=== PATIENT | male | born 1985 | race Caucasian/White ===

== ENCOUNTER 2021-05-23 14:30 | Emergency (ER) | payer SELFPAY ==
[2021-05-23 16:47] LABS: Absolute Lymphocytes (CBC) 2.9 K/uL (0.7-4.9); Hematocrit 40.3 % (39.6-49.0); Lymphocytes % 29.6 % (15.3-44.8); MPV 7.9 fL (7.6-11.3)
[2021-05-23 16:53] LABS: Protime INR 0.97
[2021-05-23 17:03] LABS: ALT/SGPT 20 U/L (12-78); AST/SGOT 12 U/L (15-37); Albumin 3.5 g/dL (3.4-5.0); Alkaline Phosphatase 65 U/L (45-117); BUN Blood Urea Nitrogen 16 mg/dL (7-18); Bicarbonate 29 mmol/L (21-32); Bilirubin Direct < 0.1 mg/dL (0-0.2); Bilirubin Total 0.2 mg/dL (0.2-1.0); Glucose Level 88 mg/dL (74-106); Magnesium 2.2 mg/dL (1.8-2.4); Potassium 3.9 mmol/L (3.5-5.1); Sodium Level 140 mmol/L (136-145)
[2021-05-23 17:05] LABS: NT PRO-BNP 43 pg/mL (<125); Troponin (Emerg Dept Use Only) < 0.02 ng/mL (0.0-0.045)
--- NOTE | 2021-05-23 17:08 | RAD REPORT ---
EXAM DESCRIPTION: Beena Single View05/23/2021 4:47 pm CLINICAL HISTORY: cough COMPARISON: none FINDINGS: The lungs appear clear of acute infiltrate. The heart is normal size IMPRESSION: No acute abnormalities displayed
--- NOTE | 2021-05-23 17:21 | RAD REPORT ---
EXAM DESCRIPTION: CT - Head Brain Wo Cont - 05/23/2021 4:56 pm CLINICAL HISTORY: Dizziness COMPARISON: None. TECHNIQUE: Computed axial tomography of the head was obtained. IV contrast was not requested. All CT scans are performed using dose optimization technique as appropriate and may include automated exposure control or mA/KV adjustment according to patient size. FINDINGS: An intracranial bleed is not seen . The ventricles are normal in caliber. No extra-axial fluid collection is noted. Fluid within the sinuses/ mastoids is not seen. Mild chronic sinusitis IMPRESSION: No acute intracranial abnormality is seen. If patient's symptoms persist MRI of the bra in would be recommended.
--- NOTE | 2021-05-23 17:53 | ER ---
Nurse's Notes [facility] Name: Kenneth Cabrera Age: 36 yrs Sex: Male : 1985 Arrival Date: 05/23/2021 Time: 14:33 Bed 26 Private MD: Diagnosis: Nontraumatic hematoma of soft tissue Presentation: 05/23 15:01 Chief complaint: Patient states: Multiple bruises all over the body, generalized ww fatigue, nausea and vomiting with recent weight loss, dizziness and shortness of breath. Coronavirus screen: Vaccine status: Patient reports receiving the 2nd dose of the covid vaccine. Client denies travel out of the [place] in the last 14 days. Ebola Screen: Patient negative for fever greater than or equal to 101.5 degrees Fahrenheit, and additional compatible Ebola Virus Disease symptoms Patient denies exposure to infectious person. Initial Sepsis Screen: Does the patient meet any 2 criteria? No. Patient's initial sepsis screen is negative. Does the patient have a suspected source of infection? No. Patient's initial sepsis screen is negative. Risk Assessment: Do you want to hurt yourself or someone else? Patient reports no desire to harm self or others. Onset of symptoms is unknown. 15:01 Method Of Arrival: Ambulatory ww 15:01 Acuity: SANTO 3 ww Triage Assessment: 15:03 General: Appears in no apparent distress. Behavior is calm, cooperative, appropriate ww for age. Pain: Denies pain. EENT: No deficits noted. No signs and/or symptoms were reported regarding the EENT system. Neuro: No deficits noted. Level of Consciousness is awake, alert, obeys commands, Oriented to person, place, time, situation. Cardiovascular: No deficits noted. Reports chest pain, shortness of breath. Respiratory: Reports shortness of breath Airway is patent Respiratory effort is even, unlabored, Respiratory pattern is regular, symmetrical. GI: No deficits noted. No signs and/or symptoms were reported involving the gastrointestinal system. : No deficits noted. No signs and/or symptoms were reported regarding the genitourinary system. Derm: Skin is intact, Skin is pink, warm \\T\\ dry. Bruising that is on abdomen, right leg and left leg. Historical: - Allergies: 15:03 No Known Allergies; ww - Home Meds: 15:03 Lisinopril Oral [Active]; Hydrochlorothiazide Oral [Active]; ww - PMHx: 15:03 Atrial fibrillation; Hypertensive disorder; ww - PSHx: 15:03 right radial; hardware in bilateral legs; ww - Immunization history:: Client reports receiving the 2nd dose of the Covid vaccine. - Social history:: Smoking status: Patient reports the use of cigarette tobacco products, smokes one-half pack cigarettes per day. Screenin:07 Abuse screen: Denies threats or abuse. Denies injuries from another. Nutritional ww screening: No deficits noted. Tuberculosis screening: No symptoms or risk factors identified. Fall Risk None identified. Assessment: 17:15 General: Appears in no apparent distress. comfortable, Behavior is calm, cooperative. eo2 Neuro: Level of Consciousness is awake, alert, obeys commands, Oriented to person, place, time, situation, Reports dizziness, since yesterday headache. Cardiovascular: Reports chest pain, shortness of breath, Capillary refill < 3 seconds Rhythm is sinus rhythm. Respiratory: Reports shortness of breath Airway is patent Respiratory effort is even, unlabored, relaxed, Respiratory pattern is regular, symmetrical, Breath sounds are clear bilaterally. GI: Abdomen is non-distended, Bowel sounds present X 4 quads. Abdomen is tender to palpation in RLQ abd Reports nausea, vomiting. : No deficits noted. No signs and/or symptoms were reported regarding the genitourinary system. Derm: Bruising that is chest, b/l thighs/ b/LE noted 3 days ago per pt. Musculoskeletal: Reports pain in right wrist "for months", worse in the past week per pt. Vital Signs: 15:01 BP 145 / 91; Pulse 79; Resp 18; Temp 98.1; Pulse Ox 100% on R/A; Weight 90.72 kg; ww Height 5 ft. 10 in. (177.80 cm); Pain 0/10; 17:00 BP 116 / 65; Pulse 58; Resp 17; Pulse Ox 99% ; Pain 9/10; eo2 15:01 Body Mass Index 28.70 (90.72 kg, 177.80 cm) ww Vitals: 17:23 Cardiac Rhythm Assessment Sinus rhythm. eo2 ED Course: 14:33 Patient arrived in ED. as 15:03 Triage completed. ww 15:03 Arm band placed on left wrist. ww 15:40 Katherine Rosario, RN is Primary Nurse. eo2 15:51 Marcus Peña NP is PHCP. pm1 15:51 Herrera Juárez MD is Attending Physician. pm1 16:47 XRAY Chest (1 view) In Process Unspecified. EDMS 16:55 CT Head Brain wo Cont In Process Unspecified. EDMS 16:55 Inserted saline lock: 20 gauge in left antecubital area, using aseptic technique. eo2 17:23 Patient has correct armband on for positive identification. pvc monitor on. Pulse eo2 ox on. NIBP on. Door closed. Noise minimized. Warm blanket given. 17:23 No provider procedures requiring assistance completed. eo2 18:23 IV discontinued, intact, bleeding controlled, No redness/swelling at site. Pressure ss dressing applied. Administered Medications: No medications were administered Outcome: 17:53 Discharge ordered by . pm1 18:23 Discharged to home ambulatory. ss 18:23 Condition: good 18:23 Discharge instructions given to patient, Instructed on discharge instructions, follow up and referral plans. Demonstrated understanding of instructions, follow-up care. 18:23 Patient left the ED. ss Signatures: Dispatcher [employer] ALYCA Scarlet Mendoza Shelby, RN RN Marcus Peña NP OBIEE REPORT DEVELOPER pm1 Mary Beth Gibson RN RN ww Katherine Rosario RN RN eo2
--- NOTE | 2021-05-23 17:53 | EDPHYS ---
Physician Documentation [facility] Name: Kenneth Cabrera Age: 36 yrs Sex: Male : 1985 Arrival Date: 05/23/2021 Time: 14:33 Bed 26 Private MD: ED Physician Herrera Juárez HPI: 05/23 16:14 This 36 yrs old Male presents to ER via Ambulatory with complaints of Dizziness, pm1 Bruising. 16:14 Bruising to bilateral thighs that he noticed about 3-4 days ago. Non-painful. No pm1 swelling. Severity of symptoms: in the emergency department the symptoms have improved. The patient has not experienced similar symptoms in the past. The patient has been recently seen by a physician: with different complaint(s), Was seen at [facility] ER about 10 days ago for atrial fibrillation. Patient was given anticoagulant at that time. He is not currently taking any anticoagulants. Patient reports resolution of atrial fibrillation on the day he was seen in the ER 10 days ago. Historical: - Allergies: 15:03 No Known Allergies; ww - Home Meds: 15:03 Lisinopril Oral [Active]; Hydrochlorothiazide Oral [Active]; ww - PMHx: 15:03 Atrial fibrillation; Hypertensive disorder; ww - PSHx: 15:03 right radial; hardware in bilateral legs; ww - Immunization history:: Client reports receiving the 2nd dose of the Covid vaccine. - Social history:: Smoking status: Patient reports the use of cigarette tobacco products, smokes one-half pack cigarettes per day. ROS: 16:14 Constitutional: Negative for fever, chills, and weight loss, Eyes: Negative for injury, pm1 pain, redness, and discharge, Cardiovascular: Negative for chest pain, palpitations, and edema, Respiratory: Negative for shortness of breath, cough, wheezing, and pleuritic chest pain, Abdomen/GI: Negative for abdominal pain, nausea, vomiting, diarrhea, and constipation. 16:14 Back: Negative for injury and pain, MS/Extremity: Negative for injury and deformity. 16:14 Skin: Positive for ecchymosis, of the left leg and right leg. 16:14 Neuro: Positive for dizziness, Negative for numbness, tingling, weakness. 16:14 All other systems are negative. Exam: 16:14 Constitutional: This is a well developed, well nourished patient who is awake, alert, pm1 and in no acute distress. Head/Face: Normocephalic, atraumatic. 16:14 Back: No spinal tenderness. No costovertebral tenderness. Full range of motion. MS/ Extremity: Pulses equal, no cyanosis. Neurovascular intact. Full, normal range of motion. 16:14 Eyes: Exam is negative for acute changes, Extraocular movements: no acute changes, Conjunctiva: no acute changes, no injection. 16:14 ENT: Exam is negative for acute changes, Mouth: no acute changes, Lips: normal, moist, Oral mucosa: normal, pink and intact, negative for bleeding, Gums: normal with healthy appearance, Posterior pharynx: no acute changes. 16:14 Cardiovascular: Exam negative for acute changes, Rate: normal, Rhythm: regular, Pulses: no pulse deficits are appreciated, Heart sounds: normal. 16:14 Respiratory: Exam negative for acute changes, respiratory distress, shortness of breath, Breath sounds: are clear throughout. 16:14 Abdomen/GI: Inspection: abdomen appears normal, Palpation: abdomen is soft and non-tender, in all quadrants. 16:14 Skin: Appearance: normal except for affected area, ecchymosis, noted on the, medial aspect of right thigh and medial aspect of left thigh, that are mild, brownish purplish. Vital Signs: 15:01 BP 145 / 91; Pulse 79; Resp 18; Temp 98.1; Pulse Ox 100% on R/A; Weight 90.72 kg; ww Height 5 ft. 10 in. (177.80 cm); Pain 0/10; 17:00 BP 116 / 65; Pulse 58; Resp 17; Pulse Ox 99% ; Pain 9/10; eo2 15:01 Body Mass Index 28.70 (90.72 kg, 177.80 cm) ww MDM: 16:13 Patient medically screened. pm1 17:28 Data reviewed: vital signs. Data interpreted: Pulse oximetry: on room air is 99 %. pm1 Interpretation: normal. 17:48 Counseling: I had a detailed discussion with the patient and/or guardian regarding: the pm1 historical points, exam findings, and any diagnostic results supporting the discharge/admit diagnosis, lab results, radiology results, the need for outpatient follow up, to return to the emergency department if symptoms worsen or persist or if there are any questions or concerns that arise at home. 17:53 ED course: Patient with hospitalization for paroxysmal atrial fibrillation about 10 pm1 days ago. Patient was given anti-coagulants at that time. The anticoagulants are likely the cause for his bruising. 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 Patient's H\T\H, platelets, PT, PTT, and INR wnls and no signs of active bleeding present. 05/23 16:14 Order name: Basic Metabolic Panel; Complete Time: 17:07 pm1 05/23 16:14 Order name: CBC with Diff; Complete Time: 16:53 pm1 05/23 16:14 Order name: LFT's; Complete Time: 17:07 pm1 05/23 16:14 Order name: Magnesium; Complete Time: 17:07 pm1 05/23 16:14 Order name: NT PRO-BNP; Complete Time: 17:07 pm1 05/23 16:14 Order name: PT-INR; Complete Time: 16:53 pm1 05/23 16:14 Order name: Troponin (emerg Dept Use Only); Complete Time: 17:07 pm1 05/23 16:14 Order name: XRAY Chest (1 view); Complete Time: 17:18 pm1 05/23 16:14 Order name: EKG; Complete Time: 16:14 pm1 05/23 16:14 Order name: Cardiac monitoring; Complete Time: 16:23 pm1 05/23 16:14 Order name: EKG - Nurse/Tech; Complete Time: 16:23 pm1 05/23 16:14 Order name: IV Saline Lock; Complete Time: 16:23 pm1 05/23 16:14 Order name: CT Head Brain wo Cont; Complete Time: 17:28 pm1 05/23 16:14 Order name: Ptt, Activated; Complete Time: 16:53 pm1 05/23 16:14 Order name: Labs collected and sent; Complete Time: 16:23 pm1 05/23 16:14 Order name: O2 Per Protocol; Complete Time: 16:23 pm1 05/23 16:14 Order name: O2 Sat Monitoring; Complete Time: 16:23 pm1 Administered Medications: No medications were administered Disposition Summary: 05/23/21 17:53 Discharge Ordered Location: Home pm1 Problem: new pm1 Symptoms: have improved pm1 Condition: Stable pm1 Diagnosis - Nontraumatic hematoma of soft tissue pm1 Followup: pm1 - With: Emergency Department - When: As needed - Reason: Worsening of condition Followup: pm1 - With: Private Physician - When: 2 - 3 days - Reason: Recheck today's complaints, Continuance of care, Re-evaluation by your physician Discharge Instructions: - Discharge Summary Sheet pm1 - Hematoma pm1 Forms: - Medication Reconciliation Form pm1 - Thank You Letter pm1 - Antibiotic Education pm1 - Prescription Opioid Use pm1 Signatures: Dispatcher [employer] EDMS Marcus Peña NP FUSING MACHINE OPERATOR pm1 Mary Beth Gibson RN RN ww Corrections: (The following items were deleted from the chart) 18:03 17:53 ED course: Patient with hospitalization for paroxysmal atrial fibrillation about pm1 10 days ago. Patient was given anti-coagulants at that time. The anticoagulants are likely the cause for his bruising. 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 Patient's H\T\Hm PT, PTT, and INR wnls and no signs of active bleeding present. pm1
[2021-05-23 18:33] VITALS: TEMP 98.1
[2021-05-23 18:35] VITALS: BP 116/65; O2SAT 99
== END 2021-05-23 18:23 | disposition home or self-care (01) ==
LOC: ER 14:30
DX: M79.81 Nontraumatic hematoma of soft tissue (principal); F17.210 Nicotine dependence, cigarettes, uncomplicated; I10 Essential (primary) hypertension; I48.91 Unspecified atrial fibrillation
CPT/HCPCS: 36415; 70450; 71045; 80048; 80076; 83735; 83880; 84484; 85025; 85610; 85730; 93005; 99284

== ENCOUNTER 2021-06-29 08:29 | Emergency (ER) | payer SELFPAY ==
--- NOTE | 2021-06-29 08:52 | ER ---
Nurse's Notes [facility] Name: Kenneth Cabrera Age: 36 yrs Sex: Male : 1985 Arrival Date: 06/29/2021 Time: 08:33 Bed 28 Private MD: Diagnosis: Uvulitis;Acute pharyngitis, unspecified Presentation: 06/29 08:39 Chief complaint: Patient states: Sore throat, neck pain, glands/throat feel swollen ll1 since Monday. No fever. Coronavirus screen: Vaccine status: Patient reports receiving the 2nd dose of the covid vaccine. Client denies travel out of the [place] in the last 14 days. sore throat, Client presents with at least one sign or symptom that may indicate coronavirus-19. Standard/surgical mask placed on the client. Ebola Screen: Patient denies travel to an Ebola-affected area in the 21 days before illness onset. Acute neurological deficit: none identified. Initial Sepsis Screen: Does the patient meet any 2 criteria? No. Patient's initial sepsis screen is negative. Does the patient have a suspected source of infection? No. Patient's initial sepsis screen is negative. Risk Assessment: Do you want to hurt yourself or someone else? Patient reports no desire to harm self or others. Onset of symptoms was June 25, 2021. 08:39 Method Of Arrival: Ambulatory ll1 08:39 Acuity: SANTO 4 ll1 Triage Assessment: 08:41 General: Appears uncomfortable, Behavior is calm, cooperative, appropriate for age. ll1 Pain: Complains of pain in throat. EENT: Reports difficulty swallowing pain when swallowing. Historical: - Allergies: 08:38 No Known Allergies; ll1 - PMHx: 08:38 Atrial fibrillation; Hypertensive disorder; Myocardial infarction; ll1 - PSHx: 08:38 hardware in bilateral legs; right radial; ll1 - Immunization history:: Client reports receiving the 2nd dose of the Covid vaccine. - Social history:: Smoking status: Patient reports the use of cigarette tobacco products, smokes one-half pack cigarettes per day. - Family history:: not pertinent. - Hospitalizations: : No recent hospitalization is reported. Screenin:50 Abuse screen: Denies threats or abuse. Denies injuries from another. Nutritional eo2 screening: No deficits noted. Tuberculosis screening: No symptoms or risk factors identified. Fall Risk None identified. Assessment: 08:50 General: Appears in no apparent distress. Behavior is calm, cooperative. Pain: eo2 Complains of pain in throat/neck. Neuro: Level of Consciousness is awake, alert, obeys commands. Cardiovascular: No deficits noted. Reports Heart tones S1 S2 Capillary refill < 3 seconds. Respiratory: Reports shortness of breath Airway is patent Trachea midline Respiratory effort is even, unlabored, Respiratory pattern is regular, symmetrical. GI: No deficits noted. No signs and/or symptoms were reported involving the gastrointestinal system. : No deficits noted. No signs and/or symptoms were reported regarding the genitourinary system. EENT: Throat is reddened has patchy exudate has enlarged tonsils exudate on uvula. Vital Signs: 08:39 BP 139 / 96; Pulse 67; Resp 16; Temp 98.5; Pulse Ox 99% ; Weight 92.99 kg; Height 5 ft. ll1 10 in. (177.80 cm); Pain 10/10; 08:50 BP 127 / 87; Pulse 67; Resp 15; Pulse Ox 97% ; Pain 10/10; eo2 09:38 BP 131 / 84; Pulse 62; Resp 17; Pulse Ox 99% ; Pain 8/10; eo2 08:39 Body Mass Index 29.41 (92.99 kg, 177.80 cm) ll1 ED Course: 08:33 Patient arrived in ED. as 08:36 Jose Garrido MD is Attending Physician. rn 08:38 Arm band placed on Patient placed in an exam room, on a stretcher. ll1 08:41 Triage completed. ll1 08:50 Katherine Rosario, ABUNDIO is Primary Nurse. eo2 08:50 Patient has correct armband on for positive identification. Pulse ox on. NIBP on. Door eo2 closed. Noise minimized. 08:50 No provider procedures requiring assistance completed. Patient did not have IV access eo2 during this emergency room visit. Administered Medications: 09:10 Drug: Decadron (dexamethasone) 10 mg Route: IM; Site: right ventrogluteal; eo2 09:38 Follow up: Response: No adverse reaction eo2 09:13 Drug: Ketorolac 30 mg Route: IM; Site: right ventrogluteal; eo2 09:38 Follow up: Response: No adverse reaction eo2 09:38 Follow up: Response: Pain is decreased eo2 09:14 Drug: Rocephin (cefTRIAXone) 1 grams {Note: administered with 2ml lidocaine 1%.} Route: eo2 IM; Site: left ventrogluteal; 09:38 Follow up: Response: No adverse reaction eo2 Outcome: 08:52 Discharge ordered by . rn 09:39 Discharged to home ambulatory. eo2 09:39 Condition: stable 09:39 Discharge instructions given to patient, Instructed on discharge instructions, follow up and referral plans. medication usage, Demonstrated understanding of instructions, follow-up care, medications, Prescriptions given X 2. 09:40 Patient left the ED. eo2 Signatures: Scarlet Mendoza Roman, MD MD rn Lewis, Lynsay, RN RN ll1 Katherine Rosario RN RN eo2
--- NOTE | 2021-06-29 08:53 | EDPHYS ---
Physician Documentation [facility] Name: Kenneth Caberra Age: 36 yrs Sex: Male : 1985 Arrival Date: 06/29/2021 Time: 08:33 Bed 28 Private MD: ED Physician Jose Garrido HPI: 06/29 08:47 This 36 yrs old Male presents to ER via Ambulatory with complaints of Neck Swelling, rn Sore Throat. 08:47 The patient presents with sore throat. The patient describes throat pain as raw. Onset: rn The symptoms/episode began/occurred 1 week(s) ago. Severity of symptoms: At their worst the symptoms were moderate, in the emergency department the symptoms are unchanged. Modifying factors: The symptoms are alleviated by nothing, the symptoms are aggravated by swallowing. Associated signs and symptoms: Pertinent positives: fever, Pertinent negatives chest pain, cough, diarrhea, shortness of breath. The patient has not experienced similar symptoms in the past. The patient has not recently seen a physician. REports sore throat and "white stuff" on throat, hurts to swallow and reports swollen lymph nodes in neck. No trauma. No current fever. No sob. . Historical: - Allergies: 08:38 No Known Allergies; ll1 - PMHx: 08:38 Atrial fibrillation; Hypertensive disorder; Myocardial infarction; ll1 - PSHx: 08:38 hardware in bilateral legs; right radial; ll1 - Immunization history:: Client reports receiving the 2nd dose of the Covid vaccine. - Social history:: Smoking status: Patient reports the use of cigarette tobacco products, smokes one-half pack cigarettes per day. - Family history:: not pertinent. - Hospitalizations: : No recent hospitalization is reported. ROS: 08:47 Constitutional: Negative for chills, and weight loss, Eyes: Negative for injury, pain, rn redness, and discharge, ENT: + sore throat Neck: Negative for injury Cardiovascular: Negative for chest pain, palpitations, and edema, Respiratory: Negative for shortness of breath, cough, wheezing, and pleuritic chest pain, Abdomen/GI: Negative for abdominal pain, nausea, vomiting, diarrhea, and constipation, Back: Negative for injury and pain, MS/Extremity: Negative for injury and deformity, Skin: Negative for injury, rash, and discoloration, Neuro: Negative for headache, weakness, numbness, tingling, and seizure. Exam: 08:47 Constitutional: This is a well developed, well nourished patient who is awake, alert, rn and in no acute distress. Head/Face: Normocephalic, atraumatic. Eyes: Periorbital areas with no swelling, redness, or edema. ENT: + mild pharyngeal erythema with exudate and inflammation of uvula. Uvula midline. NO evidence of peritonsillar abscess or swelling. No stridor. Soft floor of mouth. Neck: + tender bilateral cervical LAD, no crepitus, no meningismus. Cardiovascular: Regular rate and rhythm. No pulse deficits. Respiratory: No increased work of breathing, no retractions or nasal flaring. Vital Signs: 08:39 BP 139 / 96; Pulse 67; Resp 16; Temp 98.5; Pulse Ox 99% ; Weight 92.99 kg; Height 5 ft. ll1 10 in. (177.80 cm); Pain 10/10; 08:50 BP 127 / 87; Pulse 67; Resp 15; Pulse Ox 97% ; Pain 10/10; eo2 09:38 BP 131 / 84; Pulse 62; Resp 17; Pulse Ox 99% ; Pain 8/10; eo2 08:39 Body Mass Index 29.41 (92.99 kg, 177.80 cm) ll1 MDM: 08:37 Patient medically screened. rn 08:47 Differential diagnosis: apthous stomatitis, apthous ulcer, group A strep tonsillitis, rn laryngitis, uvulitis, viral syndrome pharyngitis. Data reviewed: vital signs, nurses notes, and as a result, I will discharge patient. Counseling: I had a detailed discussion with the patient and/or guardian regarding: the historical points, exam findings, and any diagnostic results supporting the discharge/admit diagnosis, the need for outpatient follow up, to return to the emergency department if symptoms worsen or persist or if there are any questions or concerns that arise at home. Response to treatment: the patient's symptoms have mildly improved after treatment, and as a result, I will discharge patient. Special discussion: I discussed with the patient/guardian in detail that at this point there is no indication for admission to the hospital. It is understood, however, that if the symptoms persist or worsen the patient needs to return immediately for re-evaluation. Administered Medications: 09:10 Drug: Decadron (dexamethasone) 10 mg Route: IM; Site: right ventrogluteal; eo2 09:38 Follow up: Response: No adverse reaction eo2 09:13 Drug: Ketorolac 30 mg Route: IM; Site: right ventrogluteal; eo2 09:38 Follow up: Response: No adverse reaction eo2 09:38 Follow up: Response: Pain is decreased eo2 09:14 Drug: Rocephin (cefTRIAXone) 1 grams {Note: administered with 2ml lidocaine 1%.} Route: eo2 IM; Site: left ventrogluteal; 09:38 Follow up: Response: No adverse reaction eo2 Disposition Summary: 06/29/21 08:52 Discharge Ordered Location: Home rn Problem: new rn Symptoms: have improved rn Condition: Stable rn Diagnosis - Uvulitis rn - Acute pharyngitis, unspecified rn Followup: rn - With: Private Physician - When: As needed - Reason: Recheck today's complaints, Re-evaluation by your physician Discharge Instructions: - Discharge Summary Sheet rn - Pharyngitis rn - Uvulitis rn Forms: - Medication Reconciliation Form rn - Thank You Letter rn - Antibiotic general intern - Prescription Opioid Use rn Prescriptions: - Augmentin 875-125 mg Oral Tablet - take 1 tablet by ORAL route every 12 hours for 10 days; 20 tablet; Refills: 0, rn Product Selection Permitted - Medrol (Ino) 4 mg Oral Tablets, Dose Pack - take 1 tablet by ORAL route as directed - follow package instructions; 1 rn packet; Refills: 0, Product Selection Permitted Signatures: Jose Garrido MD MD rn Lewis, Lynsay, RN RN ll1 Katherine Rosario RN RN eo2
[2021-06-29] MEDS ORDERED: dexAMETHasone 10 MG/ML VIAL ONE (09:01)
[2021-06-29] MEDS ORDERED: CEFTRIAXONE 1000 MG/VIAL ONE (09:02)
[2021-06-29] MEDS ORDERED: KETOROLAC 30 MG/ML INJ ONE (09:02)
[2021-06-29] MEDS ORDERED: LIDOCAINE 1% MPF 5 ML VIAL ONE (09:03)
[2021-06-29 09:51] VITALS: TEMP 98.5
[2021-06-29 09:54] VITALS: BP 131/84; O2SAT 99
== END 2021-06-29 09:40 | disposition home or self-care (01) ==
LOC: ER 08:29
DX: K12.2 Cellulitis and abscess of mouth (principal); J02.9 Acute pharyngitis, unspecified; I10 Essential (primary) hypertension; I48.91 Unspecified atrial fibrillation
CPT/HCPCS: 96372; 99283; J1100